=== PATIENT | female | born 1995 | race African-American/Black ===

== ENCOUNTER 2019-03-01 12:41 | Emergency (ER) | payer SELFPAY ==
[~2019-03-01] VITALS: Ht 172.7 cm; Wt 59.0 kg
[2019-03-01 13:03] VITALS: BP 114/74
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
[2019-03-01] MEDS ORDERED: LIDODERM700 M1 TOPIC (13:09)
[2019-03-01] MEDS ORDERED: ROBAXIN-500MG ORAL (13:09)
[2019-03-01] MEDS ORDERED: IBU800 MG PO (13:09)
[2019-03-01 13:15] VITALS: BP 114/74
--- NOTE | 2019-03-01 13:15 | NUR ---
ER DISCHARGE NOTE: Patient is cleared to be discharged per ERMD with friend, pt is aox4, on room air, with stable vital signs. pt was given dc and prescription instructions, pt was able to verbalize understanding, pt id band removed without complications. pt is able to ambulate with steady gait. pt took all belongings.
== END 2019-03-01 13:16 | disposition home or self-care (01) ==
LOC: EMR 13:15
DX: S13.9XXA Sprain of joints and ligaments of unspecified parts of neck, initial encounter (principal); V43.52XA Car driver injured in collision with other type car in traffic accident, initial encounter; Y92.410 Unspecified street and highway as the place of occurrence of the external cause
CPT/HCPCS: 99282